=== PATIENT | female | born 1995 | race Caucasian/White ===

== ENCOUNTER 2017-07-28 21:00 | Inpatient (IN) | payer OTHER ==
[~2017-07-28] VITALS: Ht 157.5 cm; Wt 52.2 kg
--- NOTE | ~2017-07-28 | DS ---
Unit #: [id number] #: [id number] Patient: [facility] CORNEJO [id number] [facility] [place] [address] [id number] MR#: [id number] NAME: LEONIDES CORNEJO ROOM: 78 Age: 21 Sex: F Admission Date: 07/28/2017 : 1995 Discharge Date: 08/04/2017 Attending Physician: Jaron Mena M.D. Primary Care Physician: Generic Doctor Not In System DISCHARGE SUMMARY IDENTIFICATION DATA Ms. Rice is a 21-year-old single white female who is a resident of [place], [place], and was self-referred to the hospital on a voluntary basis. DISCHARGE DIAGNOSES PSYCHIATRIC: Opioid dependence, moderate, in acute withdrawal. Alcohol dependence, moderate, in acute withdrawal. Benzodiazepine dependence, moderate. MEDICAL: Hepatitis C. STRESSORS: Moderate psychosocial stressors. HISTORY OF PRESENT ILLNESS Same as in initial psychiatric evaluation. PAST PSYCHIATRIC HISTORY Same as in initial psychiatric evaluation. PAST MEDICAL HISTORY Same as in initial psychiatric evaluation. HOSPITAL COURSE The patient was admitted to the adult chemical dependence unit at [facility] rosanne Cruz and was oriented to the hospital environment. Routine p.r.n. medications were initiated, and she was started back on her home medications. Medications were adjusted, and she was closely monitored. She was taking the medications regularly and was tolerating them fairly well and was able to show decent therapeutic response with improvement in depression and psychosis. As such it was decided that she will be discharged home. We will continue treatment on outpatient basis. DISCHARGE MEDICATIONS None. CONDITION AT DISCHARGE Stable. PROGNOSIS Fair. Dictated by... Jaron Mena M.D. Unit #: [id number] #: [id number] Patient: LEONIDES CORNEJO IAA/bzg TD: 08/08/2017 11:31 JOB #: [id number] DISCHARGE SUMMARY Page 1 of 1 X Jaron Mena MD DISCHARGE SUMMARY
--- NOTE | ~2017-07-28 | PN ---
Unit #: [id number] #: [id number] Patient: LEONIDES CORNEJO [id number] [facility] [address] [place] [address] [id number] I MR#: [id number] NAME: LEONIDES CORNEJO ROOM: [facility] Age: 21 Sex: F Admission Date: 07/28/2017 : 1995 Attending Physician: Jaron Mena M.D. Admitting Physician: Jaron Mena M.D. Primary Care Physician: Jane Doctor Not In System [facility] PROGRESS NOTES DATE OF SERVICE 07/30/2017 DISCUSSION Ms. Rice is a 21-year-old white female who was seen today. Chart was reviewed and case was discussed with the staff. She has been anxious, withdrawn, and rather seclusive to herself and remains in acute distress and discomfort. She has been vomiting, and has been unkempt, disheveled, and seclusive to herself and has not been able to carry on any meaningful conversation and has been lying in her bed and has been unable to get out, clean himself, and participate in treatment-related activities, treatment recommendations, and taking the medications and tolerating them fairly well with no reported side effects. MENTAL STATUS EXAMINATION Young white female who is casually dressed with marginal personal hygiene, appears to be in no acute distress or discomfort. The patient was awake and alert with impaired attention and concentration. Her mood is anxious with congruent affect. Her speech is slow and restricted in content. Her thought process were disorganized with some looseness of associations. Her insight and judgment remain significantly impaired. TREATMENT PLAN 1. We will continue her on her current medications and treatment protocol as well as detox medication. We will monitor her response to medications and make further adjustments as needed. 2. We will continue to follow up. Dictated by... Jaron Mena M.D. IAA/bzg TD: 08/01/2017 09:43 JOB #: [id number] Unit #: [id number] #: [id number] Patient: LEONIDES CORNEJO [facility] NOTES Page 1 of 1 X Jaron Mena MD PROGRESS NOTE
--- NOTE | ~2017-07-28 | HP ---
Unit #: [id number] #: [id number] Patient: LEONIDES CORNEJO [id number] [place] [address] [id number] I MR#: [id number] NAME: LEONIDES CORNEJO ROOM: P175 Age: 21 Sex: F Admission Date: 07/28/2017 : 1995 Attending Physician: Jaron Mena M.D. Admitting Physician: Jaron Mena M.D. Primary Care Physician: Generic Doctor Not In System HISTORY AND PHYSICAL HISTORY OF PRESENT ILLNESS The patient is a 21 year old female admitted to [facility] on 07/28/2017 to detox from heroin and alcohol. PAST MEDICAL HISTORY Hepatitis C. PAST SURGICAL HISTORY Patient denies. ALLERGIES No known drug allergies. SOCIAL HISTORY She is unemployed and homeless. She smokes 1 to 2 packs of cigarettes daily. Drinks tequila on a daily basis and uses opiates for pain and benzodiazepine. FAMILY HISTORY Noncontributory. REVIEW OF SYSTEMS CONSTITUTIONAL: No fever or chills. HEENT: Denies any sore throat, ear pain or runny nose. CARDIOVASCULAR: Denies chest pain, irregular heart rhythm or palpitations. CHEST: Denies shortness of breath or cough. No hemoptysis. GASTROINTESTINAL: Denies nausea, vomiting, diarrhea or chronic constipation. ENDOCRINE: Denies history of increased thirst or urination. No recent significant weight loss or gain. GENITOURINARY: Denies dysuria, frequency, or hematuria. SKIN: Denies any rashes. HEMATOLOGIC: Denies history of increased bleeding or bruising. MUSCULOSKELETAL: Denies any hot, swollen joints. No generalized muscle pain. NEUROLOGIC: Denies problems with vision or speech. No frequent, severe headaches. No numbness, tingling or weakness in any extremities. Denies loss of bladder or bowel control. CURRENT MEDICATIONS Patient is not on any home medications. PHYSICAL EXAMINATION Unit #: [id number] #: [id number] Patient: LEONIDES CORNEJO GENERAL: She is awake, alert, oriented, in no acute distress. VITAL SIGNS: Temperature 97.9, heart rate 108, respirations 16, blood pressure 127/84. HEIGHT: 5 feet 2. WEIGHT: 115 pounds. SKIN: Track singh on her arm. HEENT: Normocephalic. TMs not viewed. Oral and nasal passages clear. Conjunctivae clear. PERRLA. EOMs intact. NECK: Supple without lymphadenopathy or thyromegaly. HEART: Regular rate and rhythm without murmur. LUNGS: Clear. ABDOMEN: Soft, nontender. : Not done. EXTREMITIES: No evidence of cyanosis, clubbing or edema. Moves all without focal deficit. NEUROLOGICAL: Grossly within normal limits. Cranial Nerves: II: Visual velasquez are intact. III, IV AND : Extraocular movements are intact. Pupils are equal, round and reactive to light. V: Facial sensation is grossly normal. VII: Facial movements and expression are normal. VIII: Auditory acuity grossly intact. IX, X: Uvula is midline. Phonation is normal. XI: Patient shrugs shoulders and turns head normally. XII: Tongue protrudes in the midline. Sensory and Motor Function: Sensory and motor sensation is grossly normal. Motor: moves all extremities well. Coordination: Gait is normal. Deep Tendon Reflexes: Intact. IMPRESSION 1. Psychiatric admission. 2. Hepatitis C. 3. Drug abuse. RECOMMENDATIONS PSYCHIATRIC: Per psychiatrist. MEDICAL: No contraindication to participate in facility's activities. MEDICAL PROGNOSIS Good. MEDICAL CONDITION Stable. Dictated by... Nickie Dillon/andrey TD: 07/29/2017 15:40 JOB #: [id number] Unit #: [id number] #: [id number] Patient: LEONIDES CORNEJO HISTORY AND PHYSICAL Page 1 of 1 X LOTTIE TALAVERA APRN HISTORY AND PHYSICAL
--- NOTE | ~2017-07-28 | EKG ---
PATIENT: LEONIDES CORNEJO UNIT #: [id number] Ventricular Rate: 67 BPM Atrial Rate: 67 BPM P-R Interval: 144 ms QRS Duration: 82 ms Q-T Interval: 410 ms QTC Calculation(Bezet): 433 ms P [place]: 67 degrees Calculated R [place]: 80 degrees Calculated T [place]: 82 degrees Diagnosis Line: Normal sinus rhythm with sinus arrhythmia Diagnosis Line: Normal ECG Diagnosis Line: Diagnosis Line: Confirmed by MARC GRAHAM MD ([id number]) on Diagnosis Line: 08/04/2017 10:52:17 AM INTERPRETING MD: GLADYS ROTH
--- NOTE | ~2017-07-28 | PN ---
Unit #: [id number] #: [id number] Patient: LEONIDES CORNEJO [id number] [facility] [address] [place] [address] [id number] I MR#: [id number] NAME: LEONIDES CORNEJO ROOM: P178 Age: 21 Sex: F Admission Date: 07/28/2017 : 1995 Attending Physician: Jaron Mena M.D. Admitting Physician: Jaron Mena M.D. Primary Care Physician: Generic Doctor Not In System [facility] PROGRESS NOTES DATE OF SERVICE: 07/31/2017 SUBJECTIVE Ms. Rice is a 21-year-old white female with substance abuse and mood disorder, who was seen today and chart was reviewed, and case was discussed with the staff. She has been anxious, withdrawn, and rather seclusive to herself. Meanwhile, she has been cooperative with treatment recommendations and has been taking medications and tolerating them fairly well with no reported side effects. MENTAL STATUS EXAMINATION Young white female who was casually dressed with fair personal hygiene, appears to be in no acute distress or discomfort. She was awake and alert with impaired attention and concentration. Her mood was anxious with a congruent affect. She denies any suicidal or homicidal ideations. Her insight and judgment remain slightly impaired. TREATMENT PLAN 1. We will continue on current treatment protocol. We will monitor her response to medications and make further adjustments as needed. 2. We will continue to follow up. Dictated by... Pili Arceo/katiana TD: 08/01/2017 22:58 JOB #: [id number] [facility] PROGRESS NOTES Page 1 of 1 X Jaron Mena MD PROGRESS NOTE
--- NOTE | ~2017-07-28 | PN ---
Unit #: [id number] #: [id number] Patient: LEONIDES CORNEJO [id number] [facility] [address] [place] [address] [id number] I MR#: [id number] NAME: LEONIDES CORNEJO ROOM: [facility] Age: 21 Sex: F Admission Date: 07/28/2017 : 1995 Attending Physician: Jaron Mena M.D. Admitting Physician: Jaron Mena M.D. Primary Care Physician: Generic Doctor Not In System [facility] PROGRESS NOTES DATE 08/02/2017 DISCUSSION Ms. Rice is a 21-year-old white female who was seen today and chart was reviewed and case was discussed with the staff. She has been anxious, withdrawn, depressed and rather seclusive to herself. Meanwhile, she has been cooperative with treatment recommendations and appears to be coming out of the detox without any complications. MENTAL STATUS EXAMINATION Young white female who was casually dressed with fair personal hygiene and appears to be in no acute distress or discomfort. She was awake and alert with intact orientation. Her mood was anxious with congruent affect. Her speech is slow and goal-directed. She denies any suicidal or homicidal ideation. Her insight and judgement remains slightly impaired. TREATMENT PLAN 1. Will continue on current medications and treatment protocol. Will monitor her response to medications and make further adjustments as needed. 2. Will continue to follow up. Dictated by... Jaron Mena M.D. IAA/andrey TD: 08/02/2017 15:04 JOB #: [id number] Unit #: [id number] #: [id number] Patient: LEONIDES CORNEJO [facility] PROGRESS NOTES Page 1 of 1 X Jaron Mena MD X PROGRESS NOTE
--- NOTE | ~2017-07-28 | PA ---
Unit #: [id number] #: [id number] Patient: LEONIDES CORNEJO [id number] [facility] [address] [place] [address] [id number] I MR#: [id number] NAME: LEONIDES CORNEJO ROOM: P175 Age: 21 Sex: F Admission Date: 07/28/2017 : 1995 Date of Assessment: Attending Physician: Jaron Mena M.D. Admitting Physician: Jaron Mena M.D. Primary Care Physician: Generic Doctor Not In System PSYCHIATRIC ASSESSMENT DATE OF SERVICE 07/29/2017. IDENTIFYING DATA Ms. Rice is a 21-year-old single white female, who is a resident of [place], [place], and was self-referred to the hospital on a voluntary basis. CHIEF COMPLAINT "Using drugs and drinking." HISTORY OF PRESENT ILLNESS Ms. Rice is a 21-year-old white female, who came to the hospital stating that she has been using drugs and has been drinking and had a COWS of 14 indicating significant opioid withdrawals and reports daily use of heroin up to a gram a day via IV route and the last use was 1500 hours on 07/27/2017 and reports crushing and snorting Xanax 2 bars and 6.5 mg of Ativan over the last few days and the last use being couple of days ago and also reports using a fifth of Tequila tonight and reports daily use of alcohol and heroin up until 2 days ago, and she has been coming off substances and that she feels achy and restless and was seen to be in significant distress and discomfort and as such, recommendation for inpatient level of care for safety and stabilization was made. On evaluation by me, the patient was curled up in her bed in the blanket with several layers of clothing all around it and tray full of vomit and was in significant distress and discomfort and unable to carry on meaningful conversation, appears to have already started going into acute and active detox from opioids. SUBSTANCE ABUSE HISTORY The patient reports extensive history of substance abuse and dependence including alcohol, cannabis, cocaine, acid, opioids, methamphetamine, and benzodiazepines, and currently, she has been using opioids, particularly heroin has been her drug of choice. She also has been mixing it with alcohol and Xanax on regular basis. PAST PSYCHIATRIC HISTORY The patient has not had any prior inpatient or outpatient psychiatric treatment. Review of the medical records indicate currently she is not active in treatment program, is not seeing a psychiatrist, and is not taking any psychotropic medications. PAST MEDICAL HISTORY Unit #: [id number] #: [id number] Patient: LEONIDES CORNEJO Hepatitis C. ALLERGIES No known medication allergies. CURRENT MEDICATIONS None. PERSONAL AND SOCIAL HISTORY A 21-year-old white female, who reports that she is single, unemployed, and lives alone and has poor social support system. MENTAL STATUS EXAMINATION Young white female who was casually dressed with fair personal hygiene, appears to be in no acute distress or discomfort. She was awake and alert on interaction with intact orientation to time, place, and person. Her mood was anxious and depressed with a congruent affect. Her speech was slow and restricted in content. Her thought processes were disorganized with some looseness of associations and flight of ideas and paranoid ideations. She denies any suicidal or homicidal ideations and also denies any auditory or visual hallucinations. Her insight and judgment remain significantly impaired. DIAGNOSTIC IMPRESSION Psychiatric: Opioid dependence, moderate and acute withdrawals; alcohol dependence, moderate and acute withdrawals; benzodiazepine dependence, moderate. Medical: Hepatitis C. Stressors: Moderate psychosocial stressors. TREATMENT PLAN 1. The patient has presented with history of mood disorder and substance abuse and dependence and has been decompensating and will need inpatient hospitalization for safety and stabilization. We will start her back on her home medications. We will adjust the medications and monitor response. 2. Supportive therapy was provided to the patient. 3. Safe, structured, and nourishing environment will be provided. ESTIMATED LENGTH OF STAY 5 to 7 days. ABILITY TO HELP SELF Limited. WILLINGNESS TO HELP SELF The patient appears to be willing to help self. STRENGTHS 1. Communicative. 2. Cooperative. PROBLEMS 1. Chronic dysphoric symptoms. 2. Chronic chemical dependency. 3. Poor social support system. DISCHARGE CRITERIA This will be contingent upon the patient's ability to show resolution of her depression and anxiety and her ability to go through detox without Unit #: [id number] #: [id number] Patient: LEONIDES CORNEJO having any significant withdrawal symptoms as well as her ability to stay safe to herself, particularly after discharge from the hospital. Dictated by... Jaron Mena M.D. INA/katiana TD: 07/30/2017 02:27 JOB #: [id number] PSYCHIATRIC ASSESSMENT Page 1 of 1 X Jaron Mena MD PSYCHIATRIC ASSESSMENT
--- NOTE | ~2017-07-28 | PN ---
Unit #: [id number] #: [id number] Patient: LEONIDES CORNEJO [id number] [facility] [address] [place] [address] [id number] I MR#: [id number] NAME: LEONIDES CORNEJO ROOM: P178 Age: 21 Sex: F Admission Date: 07/28/2017 : 1995 Attending Physician: Jaron Mena M.D. Admitting Physician: Jaron Mena M.D. Primary Care Physician: Generic Doctor Not In System [facility] PROGRESS NOTES DATE OF SERVICE 08/03/2017 DISCUSSION Ms. Rice is a 21-year-old white female with substance abuse and mood disorder who was seen today. Chart was reviewed and case was discussed with the staff. She appears to be doing much better and has been coming out of the detox without any complications and is planning on continued treatment on outpatient basis. MENTAL STATUS EXAMINATION Young white female who is casually dressed with fair personal hygiene, appears to be in no acute distress or discomfort. The patient was awake and alert with intact orientation. Her mood is anxious with congruent affect. She denies any suicidal or homicidal ideations. Her insight and judgment remain slightly impaired. TREATMENT PLAN 1. We will continue her on her current medications and treatment protocol. We will monitor her response and consider doing discharge planning tomorrow. 2. We will continue to follow up. Dictated by... Jaron Mena M.D. IAA/bzg TD: 08/03/2017 11:51 JOB #: [id number] [facility] PROGRESS NOTES Page 1 of 1 X Jaron Mena MD PROGRESS NOTE
--- NOTE | ~2017-07-28 | PN ---
Unit #: [id number] #: [id number] Patient: LEONIDES CORNEJO [id number] [facility] [address] [place] [address] [id number] MR#: [id number] NAME: LEONIDES CORNEJO ROOM: [facility] Age: 21 Sex: F Admission Date: 07/28/2017 : 1995 Attending Physician: Jaron Mena M.D. Admitting Physician: Jaron Mena M.D. Primary Care Physician: Generic Doctor Not In System [facility] PROGRESS NOTES DATE 08/01/2017 DISCUSSION Ms. Rice is a 21-year-old white female who was seen today and chart was reviewed and case was discussed with the staff. She remains anxious, withdrawn and reports not feeling good and describes herself to be in distress and discomfort. Meanwhile, she has been taking the medications and tolerating them fairly well with no reported side effects. MENTAL STATUS EXAMINATION Young white female who was casually dressed with fair personal hygiene and appears to be in no acute distress or discomfort. She was awake and alert with . Her mood was anxious with congruent affect. Her speech is slow and restricted in content. She denies any suicidal or homicidal ideations. Her insight and judgement remains slightly impaired. TREATMENT PLAN 1. Will continue on current medications and treatment protocol. Will monitor her response to the medications and make further adjustments as needed. 2. Will continue to follow up. Dictated by... Pili Arceo/andrey TD: 08/01/2017 20:33 JOB #: [id number] Unit #: [id number] #: [id number] Patient: LEONIDES CORNEJO PROGRESS NOTES Page 1 of 1 X Jaron Mena MD PROGRESS NOTE
[2017-07-30 13:11] LABS: ALBUMIN SERUM 4.1 g/dL (3.5-5.0); BILIRUBIN,TOTAL 0.9 mg/dL (0.2-2.0); CALCIUM SERUM 9.6 mg/dL (8.4-10.2); CREATININE SERUM 0.6 mg/dL (0.6-1.4); GLOM FILT RATE Estimated 129.4 mL/min (>60); POTASSIUM 4.4 mmol/L (3.5-5.1); PROTEIN TOTAL SERUM 7.6 g/dL (6.0-8.3)
[2017-07-30 13:24] LABS: BASOPHIL# 0.1 X10e3 (0-0.3); BASOPHIL% 0.8 % (0-2.5); EOSINOPHIL% 0.5 % (0.0-7.0); HEMATOCRIT 42.6 % (35.0-45.0); HEMOGLOBIN 14.3 gm/dL (12.0-16.0); LYMPHOCYTE# 2.1 X10e3 (1.0-3.5); LYMPHOCYTE% 24.6 % (17.0-45.0); MEAN CELL VOLUME 80.5 FL (83-96); MEAN CORPUSCULAR HEMOGLOBIN 27.1 PG (28-34); MEAN CORPUSCULAR HGB CONC 33.7 g/dL (30-36); MEAN PLATELET VOLUME 8.1 FL (6.5-11.5); MONOCYTE# 0.7 X10e3 (0-1.0); MONOCYTE% 8.3 % (3.0-12.0); NEUTROPHIL# 5.7 X10e3 (1.5-7.1); NEUTROPHIL% 65.8 % (40-75); PLATELET COUNT 319 X10e3 (140-420); RED BLOOD COUNT 5.29 X10e (3.90-5.30); RED CELL DISTRIBUTION WIDTH 14.3 % (11.0-15.5); WHITE BLOOD COUNT 8.7 X10e3 (4.0-10.5)
[2017-07-30 13:31] LABS: DIFF IND NO
[2017-07-31 13:52] LABS: URINE APPEARANCE CLOUDY; URINE BILIRUBIN NEG (NEG); URINE BLOOD NEG (NEG); URINE COLOR DK YELLOW; URINE GLUCOSE NEG (NEG); URINE KETONE NEG (NEG); URINE LEUKOCYTE ESTERASE NEG (NEG); URINE NITRATE NEG (NEG); URINE PROTEIN TRACE (NEG); URINE SPECIFIC GRAVITY 1.023 (1.003-1.035)
[2017-07-31 13:58] LABS: AMPHETAMINE NEG (NEG); BARBITURATES NEG (NEG); BENZODIAZEPINES POS (NEG); COCAINE NEG (NEG); MARIJUANA NEG (NEG); OPIATES POS (NEG); TRICYCLIC ANTIDEPRESSANTS NEG (NEG); U METHADONE NEG (NEG)
[2017-07-31 14:58] LABS: CULTURE INDICATED? NO
[2017-08-03 12:49] LABS: INFLUENZA A NEG (NEG); INFLUENZA B NEG (NEG)
[2017-08-04 11:46] LABS: HA AB IGM (HEPPAN) Nonreactive (()); HB CORE AB IGM (HEPPAN) Nonreactive (Nonreactive); HB S AG (HEPPAN) Nonreactive (Nonreactive); HEP C AB (HEPPAN) Reactive (Nonreactive)
== END 2017-08-04 10:50 | DRG 897 ==
LOC: P1E 23:52
PROVIDERS: Physician Assistant Medical; Psychiatry & Neurology Psychiatry
PROC: HZ2ZZZZ Detoxification Services for Substance Abuse Treatment (ICD-10-PCS; principal; 2017-07-28)
DX: F11.23 Opioid dependence with withdrawal (principal); F13.20 Sedative, hypnotic or anxiolytic dependence, uncomplicated; F10.239 Alcohol dependence with withdrawal, unspecified; B19.20 Unspecified viral hepatitis C without hepatic coma; Z56.0 Unemployment, unspecified; Z59.0 Homelessness; F17.210 Nicotine dependence, cigarettes, uncomplicated
CPT/HCPCS: 80053; 80074; 80307; 81003; 85025; 87522; 87651; 87804; 87806; 93005; J2550